=== PATIENT | male | born 1965 | race Caucasian/White ===

== ENCOUNTER 2019-03-04 21:59 | Emergency (ER) | payer SELFPAY ==
--- NOTE | 2019-03-04 22:11 | EDM.PDOC ---
ED HPI GENERAL MEDICAL PROBLEM - General Chief Complaint: General Stated Complaint: medical clearance Time Seen by Provider: 03/04/19 22:06 Source of Information: Reports: Patient History Limitations: Reports: No Limitations - History of Present Illness INITIAL COMMENTS - FREE TEXT/NARRATIVE: 53 YO HF presents to ER by police for medical clearance. Pt reports he takes medication for his blood pressure and needs it before he can go to intermediate. Pt unsure f the name of his medication. Pt reports he is from out of town and his doctors are in [place]. Pt denies any chest pain, headache, shortness of breath, diaphoresis, nausea/vomiting. Pt's BP 170's/90's in ER. Pt reports he hasn't taken his medications in months. Duration: Chronic Improves with: Reports: None Worsens with: Reports: None Associated Symptoms: Reports: No Other Symptoms. Denies: Chest Pain - Related Data Allergies Allergy/AdvReac Type Severity Reaction Status Date / Time No Known Allergies Allergy Verified 03/04/19 22:00 ED ROS GENERAL - Review of Systems Review Of Systems: See Below Constitutional: Reports: No Symptoms HEENT: Reports: No Symptoms Respiratory: Reports: No Symptoms Cardiovascular: Reports: No Symptoms Endocrine: Reports: No Symptoms GI/Abdominal: Reports: No Symptoms : Reports: No Symptoms Musculoskeletal: Reports: No Symptoms Skin: Reports: No Symptoms Neurological: Reports: No Symptoms Psychiatric: Reports: No Symptoms Hematologic/Lymphatic: Reports: No Symptoms Immunologic: Reports: No Symptoms ED EXAM, GENERAL - Physical Exam Exam: See Below Exam Limited By: No Limitations General Appearance: Alert, WD/WN, No Apparent Distress Eye Exam: Bilateral Eye: EOMI, PERRL Nose: Normal Inspection, Normal Mucosa, No Blood Throat/Mouth: Normal Inspection, Normal Lips, Normal Teeth, Normal Gums, Normal Oropharynx, Normal Voice, No Airway Compromise Head: Atraumatic, Normocephalic Neck: Normal Inspection, Supple, Non-Tender, Full Range of Motion Respiratory/Chest: No Respiratory Distress, Lungs Clear, Normal Breath Sounds, No Accessory Muscle Use, Chest Non-Tender Cardiovascular: Normal Peripheral Pulses, Regular Rate, Rhythm, No Edema, No Gallop, No JVD, No Murmur, No Rub GI/Abdominal: Normal Bowel Sounds, Soft, Non-Tender, No Organomegaly, No Distention, No Abnormal Bruit, No Mass Back Exam: Normal Inspection, Full Range of Motion, NT Extremities: Normal Inspection, Normal Range of Motion, Non-Tender, Normal Capillary Refill, No Pedal Edema Neurological: Alert, Oriented, CN II-XII Intact, Normal Cognition, Normal Gait, Normal Reflexes, No Motor/Sensory Deficits Psychiatric: Normal Affect, Normal Mood Skin Exam: Warm, Dry, Intact, Normal Color, No Rash Lymphatic: No Adenopathy Departure - Departure Time of Disposition: 22:13 Disposition: Home, Self-Care 01 Condition: Good Clinical Impression: Medical clearance for incarceration - Discharge Information Instructions: Medical Screening Exam Additional Instructions: 1. discharge to police custody 2. follow up with PCP for BP medication 3. return to ER for worsening symptoms 4. pt is medically clear to police custody - Assessment/Plan Assessment:: 1. medically clear and released to police Plan: 1. discharge to police custody 2. follow up with PCP for BP medication 3. return to ER for worsening symptoms 4. pt is medically clear to police custody
== END 2019-03-04 22:25 | disposition home or self-care (01) ==
LOC: KA.ED 21:59
DX: Z02.89 Encounter for other administrative examinations (principal)
CPT/HCPCS: 99283

== ENCOUNTER 2019-05-10 14:53 | Emergency (ER) | payer OTHER ==
[2019-05-10] MEDS ORDERED: Lidocaine 1% with EPINEPHrine 1:100,000 20 ML MDV INJECT ONE (15:09)
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
[2019-05-10] MEDS ORDERED: Diphtheria,Pertussis(Acell),Tetanus Vaccine 0.5 ML SDV IM ONE (15:47)
== END 2019-05-10 16:10 | disposition home or self-care (01) ==
LOC: KA.ED 14:53
DX: S01.112A Laceration without foreign body of left eyelid and periocular area, initial encounter (principal); I10 Essential (primary) hypertension; Y04.8XXA Assault by other bodily force, initial encounter
CPT/HCPCS: 12013; 90471; 90715; 99283; 99284

== ENCOUNTER 2020-02-27 10:27 | Emergency (ER) | payer SELFPAY ==
[2020-02-27] MEDS ORDERED: Tetracaine HCl/PF 0.5% 4 ML Bottle EYERT ONE (11:04)
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
[2020-02-27] MEDS ORDERED: Ciprofloxacin 0.3% Ophth Soln 5 ML Bottle ONE (11:22)
[2020-02-27] MEDS ORDERED: Ciprofloxacin 0.3% Ophth Soln 5 ML Bottle EYERT SCH (15:00)
[2020-02-27] MEDS ORDERED: Ciprofloxacin 0.3% Ophth Soln 2.5 ML Bottle EYERT SCH (15:00)
== END 2020-02-27 11:30 | disposition home or self-care (01) ==
LOC: KA.ED 10:27
DX: S05.01XA Injury of conjunctiva and corneal abrasion without foreign body, right eye, initial encounter (principal); I10 Essential (primary) hypertension; E11.9 Type 2 diabetes mellitus without complications; Z79.84 Long term (current) use of oral hypoglycemic drugs; W22.8XXA Striking against or struck by other objects, initial encounter
CPT/HCPCS: 99283; 99283-25; A9270-GY

== ENCOUNTER 2023-09-11 05:59 | Emergency (ER) | payer SELFPAY | END 2023-09-11 08:01 | disposition home or self-care (01) | LOC: KA.ED 05:59 | DX: M79.602 Pain in left arm (principal); M25.562 Pain in left knee; M25.572 Pain in left ankle and joints of left foot; E86.0 Dehydration; I10 Essential (primary) hypertension; E11.9 Type 2 diabetes mellitus without complications; Z87.891 Personal history of nicotine dependence; Z79.84 Long term (current) use of oral hypoglycemic drugs; Z79.899 Other long term (current) drug therapy; W18.2XXA Fall in (into) shower or empty bathtub, initial encounter | CPT/HCPCS: 73060-LT; 73090-LT; 73562-LT; 73610-LT; 99284 ==

== ENCOUNTER 2023-09-14 19:34 | Emergency (ER) | payer SELFPAY ==
[2023-09-14 20:10] LABS: BASOPHILS ABSOLUTE AUTO 0.08 10^3/uL (0.00-0.10); BASOPHILS PERCENT AUTO 0.8 % (0.0-1.0); EOSINOPHILS ABSOLUTE AUTO 0.31 10^3/uL (0.10-0.30); EOSINOPHILS PERCENT AUTO 3.3 % (1.0-3.0); HEMATOCRIT 42.7 % (40.0-52.0); HEMOGLOBIN 14.7 g/dL (13.0-17.0); IMMATURE GRAN ABSOLUTE AUTO 0.05 10^3/uL (0.00-0.50); IMMATURE GRAN PERCENT AUTO 0.5 % (0.0-5.0); LYMPHOCYTES ABSOLUTE AUTO 1.92 10^3/uL (1.00-4.00); LYMPHOCYTES PERCENT AUTO 20.3 % (20.0-40.0); MEAN CORPUSCULAR HEMOGLOBIN 30.8 pg (27.0-31.0); MEAN CORPUSCULAR HGB CONC 34.4 g/dL (32.0-36.0); MEAN CORPUSCULAR VOLUME 89.3 fL (82.0-92.0); MEAN PLATELET VOLUME 9.3 fL (7.4-10.4); MONOCYTES ABSOLUTE AUTO 0.93 10^3/uL (0.10-0.80); MONOCYTES PERCENT AUTO 9.9 % (2.0-8.0); NEUTROPHILS ABSOLUTE AUTO 6.15 10^3/uL (2.50-7.00); NEUTROPHILS PERCENT AUTO 65.2 % (50.0-70.0); PLATELET COUNT,PLT 261 10^3/uL (150-400); RED BLOOD CELL COUNT 4.78 10^6/uL (4.50-6.00); RED CELL DISTRIBUTION WIDTH 12.1 % (11.5-14.5); WHITE BLOOD CELL COUNT,WBC 9.44 10^3/uL (5.00-10.00)
[2023-09-14] MEDS ORDERED: Cephalexin 250 MG Cap PO ONE (20:25)
== END 2023-09-14 21:05 | disposition home or self-care (01) ==
LOC: KA.ED 19:34 → SUPCPDRO 19:34 → KA.ED 21:05
DX: M79.672 Pain in left foot (principal); M79.5 Residual foreign body in soft tissue; E11.9 Type 2 diabetes mellitus without complications; I10 Essential (primary) hypertension; Z79.84 Long term (current) use of oral hypoglycemic drugs; Z79.899 Other long term (current) drug therapy; W45.8XXA Other foreign body or object entering through skin, initial encounter
CPT/HCPCS: 36415; 73630; 85025; 87070; 87075; 87205; 99283; A9270

== ENCOUNTER 2023-10-06 21:23 | Emergency (ER) | payer MEDICAID ==
[2023-10-06] MEDS ORDERED: Amoxicillin/Clavulanate K 875-125 MG Tab PO ONE (22:12)
== END 2023-10-06 22:22 | disposition home or self-care (01) ==
LOC: KA.ED 21:23
DX: S91.332D Puncture wound without foreign body, left foot, subsequent encounter (principal); E66.9 Obesity, unspecified; E11.9 Type 2 diabetes mellitus without complications; Z79.899 Other long term (current) drug therapy; Z79.2 Long term (current) use of antibiotics; Z79.84 Long term (current) use of oral hypoglycemic drugs; Z68.31 Body mass index [BMI] 31.0-31.9, adult; W45.8XXD Other foreign body or object entering through skin, subsequent encounter
CPT/HCPCS: 99283; A9270-GY